=== PATIENT | female | born 1985 | race Caucasian/White ===

== ENCOUNTER 2019-06-08 12:27 | Outpatient (CLI) | payer OTHER ==
--- NOTE | 2019-06-08 17:44 | Ultrasound Report ---
US OB limited INDICATION: VIC, position. COMPARISON: None available. FINDINGS: There are twin intrauterine pregnancies. Baby A: Largest vertical amniotic fluid pocket measures 2.68 cm, which is normal. heart rate measures 1 49 bpm. position is breech. Baby B: Largest vertical amniotic fluid pocket measures 3.84 cm, which is normal. heart rate measures 1 51 bpm. position is cephalic. Signer Name: Pan Taylor MD Signed: 06/08/2019 5:39 PM Workstation Name: [id number]
[2019-06-08 18:04] VITALS: BP 116/56
--- NOTE | 2019-06-08 19:18 | Ultrasound Report ---
Biophysical profile for baby A FINDINGS: breathing, movement, tone and amniotic fluid volume all score 2 for a total of 8/8. F etal heart rate is 145 bpm. Signer Name: Robert Ellington MD Signed: 06/08/2019 7:13 PM Workstation Name: [id number]
--- NOTE | 2019-06-08 19:19 | Ultrasound Report ---
Biophysical profile for baby B FINDINGS: There is a breathing score of 0. movement, tone and amniotic fluid volume all s core 2 for a total of 6/8. heart rate is 156 bpm. Signer Name: Robert Ellington MD Signed: 06/08/2019 7:15 PM Workstation Name: [id number]
== END 2019-06-08 18:10 | disposition home or self-care (01) ==
LOC: TRG 12:27
PROVIDERS: ATTEND Obstetrics & Gynecology
DX: O47.03 False labor before 37 completed weeks of gestation, third trimester (principal); Z3A.37 37 weeks gestation of pregnancy
CPT/HCPCS: 76815; 76819

== ENCOUNTER 2019-06-15 13:06 | Outpatient (CLI) | payer OTHER ==
[2019-06-15 14:21] VITALS: BP 104/57
--- NOTE | 2019-06-15 17:02 | Ultrasound Report ---
Limited OB with biophysical profile. 06/15/2019. HISTORY: Twin intrauterine gestations. COMPARISON: 06/08/2019. FINDINGS: Twin intrauterine gestations are again noted. Twin A is located in the breech position. The largest vertical pocket of amniotic fluid is 3.4 cm. heart tones are 163 bpm. Twin B is located in the posterior transverse head maternal left position. The largest for pocket of amniotic fluid is 2.5 cm. heart tones are 158 bpm. Biophysical profile is 8 out of 8 for both twin A and twin B. IMPRESSION: Twin A and twin B both have a biophysical profile of 8/8. Signer Name: Cam Stanley MD Signed: 06/15/2019 4:58 PM Workstation Name: [id number]
== END 2019-06-15 17:00 | disposition home or self-care (01) ==
LOC: TRG 13:06
PROVIDERS: ATTEND Obstetrics & Gynecology
DX: O47.1 False labor at or after 37 completed weeks of gestation (principal); Z3A.38 38 weeks gestation of pregnancy
CPT/HCPCS: 59025; 76815; 76819

== ENCOUNTER 2019-06-23 02:06 | Inpatient (IN) | payer SELFPAY ==
[2019-06-23] MEDS ORDERED: LACTATED RINGERS 1,000 ML ONE ×2 (02:31→03:07)
[2019-06-23] MEDS ORDERED: LACTATED RINGERS 1,000 ML IV ONE (02:36)
[2019-06-23] MEDS ORDERED: BICITRA PO ONE (02:40)
[2019-06-23 02:45] LABS: Hemoglobin 12.3 gm/dl (10.1-14.3); Mean Corpuscular HGB Conc 34 % (30-34); Mean Corpuscular Volume 89 fl (79-97); Platelet Count 264 K/mm3 (140-440); Red Blood Count 4.05 M/mm3 (3.65-5.03); Red Cell Distribution Width 14.9 % (13.2-15.2)
[2019-06-23] MEDS: PEPCID IV SCH ×3 (02:45→22:21)
[2019-06-23] MEDS ORDERED: PITOCin/NS 20 UNIT/1000ML DRIP 20,000 MILLIUNITS/1,000 ML BAG IV ONE (02:45)
--- NOTE | 2019-06-23 02:52 | Anesthesia Consultation ---
Anesthesia Consult and Med Hx Date of service: 06/23/19 - Airway Anesthetic Teeth Evaluation: Poor, Chipped ROM Head & Neck: Adequate Mental/Hyoid Distance: Adequate Mallampati Class: Class II Intubation Access Assessment: Probably Good - Pulmonary Exam CTA: Yes - Cardiac Exam Cardiac Exam: RRR - Pre-Operative Health Status ASA Pre-Surgery Classification: ASA2 Proposed Anesthetic Plan: Epidural - Pulmonary Hx Smoking: No Hx Asthma: No Hx Respiratory Symptoms: No SOB: No COPD: No Home Oxygen Therapy: No Hx Pneumonia: No Hx Sleep Apnea: No - Cardiovascular System Hx Hypertension: No Hx Coronary Artery Disease: No Hx Heart Attack/AMI: No Hx Angina: No Hx Cardia Arrhythmia: No Hx Pacemaker: No Hx Internal Defibrillator: No Hx Valvular Heart Disease: No Hx Heart Murmur: No Hx Peripheral Vascular Disease: No - Central Nervous System Hx Neuromuscular Disorder: No Hx Seizures: No CVA: No Hx Back Pain: Yes Hx Psychiatric Problems: No - Gastrointestinal Hx Ulcer: No Hx Gastroesophageal Reflux Disease: Yes - Endocrine Hx Renal Disease: No Hx End Stage Renal Disease: No Hx Cirrhosis: No Hx Liver Disease: No Hx Insulin Dependent Diabetes: No Hx Hypothyroidism: No Hx Hyperthyroidism: No - Hematic Hx Anemia: No Hx Sickle Cell Disease: No - Other Systems Hx Alcohol Use: No Hx Substance Use: No Hx Cancer: No Hx Obesity: No
--- NOTE | 2019-06-23 02:53 | Anesthesia Day of Surgery ---
Anesthesia Day of Surgery - Day of Surgery Patient Examined: Yes Patient H&P Reviewed: Yes Patient is NPO: Yes Beta Blockers: No Cardiac Clearance: No Pulmonary Clearance: No Matthieu's Test: N/A
[2019-06-23] MEDS ORDERED: ZOFRAN IV PRN ×2 (02:54→05:18)
[2019-06-23] MEDS ORDERED: DILAUDID IV PRN ×2 (02:54)
[2019-06-23] MEDS ORDERED: PHENERGAN PO PRN (02:54)
[2019-06-23] MEDS ORDERED: BENADRYL IV PRN (02:54)
[2019-06-23] MEDS ORDERED: PHENERGAN PR PRN ×2 (02:54→05:18)
[2019-06-23] MEDS ORDERED: REGLAN IV NR (03:00)
[2019-06-23] MEDS ORDERED: ANCEF/STERILE WATER 2 GM/20 ML IV NR (03:00)
[2019-06-23] MEDS ORDERED: SUBLIMAZE ONE (03:16)
[2019-06-23] MEDS ORDERED: DIPRIVAN 10 MG/ML IV ONE (03:47)
[2019-06-23] MEDS ORDERED: WATER FOR IRRIG STERILE IR ONE (03:48)
[2019-06-23] MEDS ORDERED: NACL 0.9% IR ONE (03:48)
[2019-06-23] MEDS ORDERED: ZOFRAN ONE (03:55)
[2019-06-23] MEDS ORDERED: METHERGINE IM ONE ×2 (04:08→05:12)
--- NOTE | 2019-06-23 04:56 | History and Physical Report ---
History of Present Illness Date of examination: 06/23/19 Date of admission: 06/23/19 02:06 Chief complaint: Twin gestation at 39 weeks and 5 days in labor. malpresentation, breech/breech. Previous C/section. History of present illness: Patient is a 33 year old , LMP 09/18/18, EDC 06/25/19 at 39 weeks and 5 days with twin gestation who presented to triage complaining of having fluid leakage since about 1 AM. She denies any bleeding but has some contractions. Her cervix is 5 cm/100%/-1. She is patient of [facility]. Sonogram revealed the twins to be breech/breech. She has a previous C/section. Past History Past Surgical History: section Family/Genetic History: none Social history: no significant social history - Obstetrical History Expected Date of Delivery: 06/25/19 Actual Gestation: 39 Week(s) 5 Day(s) : 3 Para: 1 Spontaneous Abortions: 1 Number of Living Children: 1 Medications and Allergies Allergies Allergy/AdvReac Type Severity Reaction Status Date / Time No Known Allergies Allergy Verified 06/08/19 15:19 Active Meds: Active Medications Cefazolin Sodium (Ancef/Sterile Water 2 Gm/20 Ml) 2 gm IV PREOP NR Stop: 06/23/19 23:59 Diphenhydramine HCl (Benadryl) 12.5 mg IV Q2H PRN PRN Reason: Itching Famotidine (Pepcid) 20 mg IV BID MASHA Hydromorphone HCl (Dilaudid) 0.5 mg IV Q5M PRN PRN Reason: Breakthrough Pain Stop: 06/23/19 15:00 Hydromorphone HCl (Dilaudid) 0.5 mg IV Q4H PRN PRN Reason: breakthrough pain > 7/10 Oxytocin/Sodium Chloride (Pitocin/Ns 20 Unit/1000ml Drip) 20 units in 1,000 mls @ 0 mls/hr IV DIRECT MASHA Metoclopramide HCl (Reglan) 10 mg IV PREOP NR Stop: 06/23/19 10:00 Ondansetron HCl (Zofran) 4 mg IV Q8H PRN PRN Reason: Nausea And Vomiting Promethazine HCl (Phenergan) 25 mg PO Q6H PRN PRN Reason: Nausea And Vomiting Promethazine HCl (Phenergan) 25 mg AR Q6H PRN PRN Reason: Nausea And Vomiting - Vital Signs Vital signs: Vital Signs Temp Pulse Resp BP 99.7 F H 76 18 133/61 06/23/19 02:55 06/23/19 02:55 06/23/19 02:55 06/23/19 02:55 Temp Pulse Resp BP Pulse Ox 99.7 F H 78 18 132/80 06/23/19 02:55 06/23/19 04:39 06/23/19 02:55 06/23/19 04:39 - Physical Exam Cardiovascular: Normal S1, Normal S2 Lungs: Positive: Clear to auscultation Vulva: both: normal Deep Tendon Reflex Grade: Normal +2 - Obstetrical FHR: category 1 Uterine Contraction Monitor Mode: External Cervical Dilatation: 5 Cervical Effacement Percentage: 100 station: -1 Uterine Contraction Pattern: Irregular Uterine Contraction Intensity: Mild Results Result Diagrams: 06/23/19 02:30 All other labs normal. Assessment and Plan - Patient Problems (1) 39 weeks gestation of Current Visit: Yes Status: Acute (2) malpresentation Current Visit: Yes Status: Acute Plan to address problem: Admit to labor floor. Sonogram confirmed breech/breech presentation. Routine preop labs. IV hydration. Keep NPO. monitoring. Patient was counselled for repeat C/section. Risks, benefits, and alternatives of the procedure were discussed in detail with the patient which included but not limited to the risk of infection, hemorrhage requiring blood transfusion, injury to the bowel or bladder and blood vessels. The patient expressed understanding, her questions were answered, and she gave informed consent. Anesthesia notified. (3) Previous section Current Visit: Yes Status: Acute
--- NOTE | 2019-06-23 05:07 | Post Anesthesia Evaluation ---
- Post Anesthesia Evaluation Patient Participated: Yes Nausea/Vomiting: No Temp > 96.8F: Yes Pain Manageable: Yes Adequeate Hydration: Yes Anesthesia Complications: No Block Receding Appropriately: Yes Patient on Ventilator: No
--- NOTE | 2019-06-23 05:08 | Operative Report ---
Operative Report Operative Report: Preoperative diagnosis 1. Twin gestation at 39 weeks and 5 days in active labor. 2. Breech/breech presentation. 3. Previous C/section. Postoperative diagnosis: Same. Procedure: Repeat low-transverse section. Surgeon: Dr. Lamar Wood Boatbuilder Apprentice: none Anesthesia: epidural. IVF: RL 1600 cc EBL: 400 cc Urine: 500 cc clear Complications: none. Intraoperative findings: 1. Baby A, female infant found in a double footling presentation, delivered at 3:59 AM, Apgars 8 at 1 minute and 9 at 5 minutes, weight 6 lbs. 8 oz. 2. Baby B, female infant found in a double footling presentation, delivered at 4 AM, Apgars 8 at 1 minute and 9 at 5 minutes, weight 6 lbs 11 oz. 3. Normal fallopian tubes and ovaries bilaterally. Procedure details: Risks, benefits, and alternatives of the procedure were discussed in detail with the patient which included but not limited to the risk of infection, hemorrhage requiring blood transfusion, injury to the bowel or bladder and blood vessels. The patient expressed understanding, her questions were answered, and she gave informed consent. The patient was taken to the operating room with an IV fluid infusing Ringers lactate. In the operating room, she was placed in a sitting position and given epidural anesthesia. She was then placed in a dorsal supine position with a leftward tilt. Rodriguez catheter in Venodyne boots were placed. The abdomen was washed and she was prepared and draped in usual sterile fashion. After confirming adequate anesthesia, a Pfannenstiel skin incision was made in the lower abdomen about 2 cm above the pubic symphysis using the scalpel. This incision was carried down to the underlying fascia using the Bovie. The fascia was opened bilaterally in a curvilinear fashion using the Bovie. 2 straight Kocker clamps were used to grasp the upper edge of the fascia from which the underlying rectus abdominis muscles was dissected off using the Bovie. A similar procedure was done with the lower edge of the fascia to dissect the underlying rectus abdominis muscle. The muscle was bluntly from the midline by pulling. The parietal peritoneum was grasped with 2 hemostat clamps and entered sharply using Metzenbaum scissors. A quick survey of the anatomy revealed a gravid uterus, normal fallopian tubes and ovaries bilaterally. A bladder flap was created. Glenn'O retractor was placed in the incision for proper visualization. A low transverse incision was made in the lower uterine segment using the scalpel and extended bilaterally in a curvilinear fashion using bandage scissors. Baby A's amniotic sac was ruptured and there was copious amount of clear amniotic fluids. Baby A was a female found in double footling presentation. She was delivered up to the thorax, the anterior shoulder was delivered, the body was rotated 180 degree to bring the posterior shoulder to an anterior position from where it was delivered. The head was flexed and delivered atraumatically at 3:59 AM. The cord was clamped 2 and cut and the was handed off to the waiting senior informatica etl developer. Apgars were 8 at 1 minute and 9 at 5 minutes, weight was 6 pounds and 8 ounces. Attention was the turned to baby B where amniotic sac was ruptured and there was copious amount of clear amniotic fluids. Baby B was a female found in double footling presentation. She was delivered up to the thorax, the anterior shoulder was delivered, the body was rotated 180 degree to bring the posterior shoulder to an anterior position from where it was delivered. The head was flexed and delivered atraumatically at 4 AM. The cord was clamped 2 and cut and the infant was handed off to the waiting senior informatica etl developer. Apgars were 8 at 1 minute and 9 at 5 minutes, weight was 6 pounds and 11 ounces. Cord blood was collected from both placentae. The placentae were delivered manually and both were complete with three-vessel cords. The uterine cavity was cleaned of clots and debris using dry lap sponges. The uterine incision was repaired in a running locked fashion using 0 Vicryl sutures. A second layer of imbrication was placed. The gutters were cl eaned of clots and debris using dry lap sponges. After confirming adequate hemostasis, the instruments were removed from the abdominal cavity. The rectus muscle was reapproximated in an interrupted fashion using 0 Vicryl sutures. The fascia was closed in a running fashion using 0 Vicryl sutures. The subcutaneous adipose layer was closed with 2.0 vicryl suture. The skin was closed with jessica. Sterile dressing was placed. The counts of laps, needles, sponges, and instruments were correct 2. The patient tolerated the procedure well, she was taken to the recovery room in a stable condition.
[2019-06-23] MEDS ORDERED: TYLENOL PO PRN (05:18)
[2019-06-23] MEDS ORDERED: MORPHINE IV PRN (05:18)
[2019-06-23] MEDS ORDERED: TORADOL IV PRN (05:18)
[2019-06-23] MEDS ORDERED: NARCAN 0.4 MG/1 ML IV PRN (05:18)
[2019-06-23] MEDS ORDERED: TUCKS PAD TP PRN (05:18)
[2019-06-23] MEDS ORDERED: LANSINOH TP PRN (05:18)
[2019-06-23] MEDS ORDERED: MYLICON PO PRN (05:18)
[2019-06-23] MEDS: PITOCin/NS 20 UNIT/1000ML DRIP 20 UNITS/1,000 ML BAG IV SCH ×2 (05:31→05:32)
[2019-06-23] MEDS ORDERED: PITOCin/NS 20 UNIT/1000ML DRIP 20 UNITS/1,000 ML BAG IV SCH (06:00)
[2019-06-23] MEDS: TORADOL IV PRN ×2 (06:24→08:33)
[2019-06-23] MEDS: MORPHINE IV PRN ×2 (07:12→17:57)
[2019-06-23] MEDS: SODIUM CHLORIDE FLUSH SYRINGE 10 ML IV NR ×2 (08:36→17:58)
[2019-06-23] MEDS ORDERED: ANUCORT-HC PR PRN (10:00)
[2019-06-23 15:59] LABS: Hematocrit 34.4 % (30.3-42.9); Hemoglobin 11.6 gm/dl (10.1-14.3)
[2019-06-23] MEDS: PERCOCET 5/325 PO PRN (22:26)
[2019-06-24] MEDS: PERCOCET 5/325 PO PRN (04:39)
[2019-06-24] MEDS ORDERED: BOOSTRIX IM ONE (06:00)
--- NOTE | 2019-06-24 10:38 | Progress Note ---
Assessment and Plan A: POD#1 s/p Repeat C/S (Twins) Pain well controlled Stable P: Routine PP/PO orders Encouraged ambulation in room Anticipate discharge home in 24-48 hrs Subjective - Subjective Date of service: 06/24/19 Principal diagnosis: POD#1 s/p Repeat C/S; Twins Patient reports: appetite normal, voiding normally, pain well controlled, flatus, ambulating normally, no bowel movement : doing well, nursing well Objective - Vital Signs Latest vital signs: Vital Signs Temp Pulse Resp BP Pulse Ox 06/24/19 08:55 98.3 F 50 L 18 106/62 100 06/24/19 04:03 98.8 F 55 L 20 105/59 98 06/23/19 23:41 98.6 F 58 L 20 93/47 94 06/23/19 20:39 97.6 F 55 L 20 99/48 100 06/23/19 17:57 16 06/23/19 16:07 98.5 F 60 16 93/50 97 06/23/19 12:51 97.6 F 50 L 16 106/51 99 Intake and Output 06/23/19 06/24/19 06/24/19 23:59 07:59 15:59 Intake Total 480 Output Total 450 700 Balance -450 -220 Intake: Intake, Free Water 480 Output: Urine 450 700 Void 450 700 Other: Total, Output Amount 450 700 - Exam Breasts: Present: normal, Cardiovascular: Present: Regular rate, Normal S1, Normal S2, No murmurs Lungs: Present: Clear to auscultation, Normal air movement Abdomen: Present: normal appearance, soft, tenderness (as expected post-op), normal bowel sounds. Absent: distention Vulva: both: normal Uterus: Present: firm, fundal height at umbilicus Extremities: Present: normal Deep Tendon Reflex Grade: Normal +2 Incision: Present: normal, dry, intact, dressed (Pressure dressing CDI)
[2019-06-24] MEDS: IBUPROFEN PO PRN ×2 (10:58→22:44)
[2019-06-24] MEDS: FEOSOL PO SCH (10:59)
[2019-06-24] MEDS: PRENATAL VITAMIN PO SCH (10:59)
[2019-06-24] MEDS: PEPCID IV SCH (22:00)
[2019-06-24] MEDS: MILK OF MAGNESIA PO PRN (22:43)
[2019-06-24] MEDS: SENOKOT PO PRN (22:44)
[2019-06-25] MEDS: IBUPROFEN PO PRN ×2 (08:11→15:44)
[2019-06-25] MEDS: SENOKOT PO PRN (08:11)
--- NOTE | 2019-06-25 10:19 | Progress Note ---
Assessment and Plan A: POD#2 s/p Repeat C/S (Twins) Pain well controlled Stable P: Routine PP/PO orders Encouraged ambulation in room Abdominal binder Anticipate discharge home in 24-48 hrs Subjective - Subjective Principal diagnosis: POD#2 s/p Repeat C/S; Twins Interval history: See H&P and operative note Patient reports: appetite normal, voiding normally, pain well controlled, flatus, ambulating normally, no bowel movement : doing well, other (Breast and bottle) Objective - Vital Signs Latest vital signs: Vital Signs Temp Pulse Resp BP Pulse Ox 06/25/19 08:56 98.3 F 67 16 110/59 100 06/24/19 23:20 98.3 F 55 L 20 99/53 100 06/24/19 17:27 98.3 F 59 L 18 112/59 99 06/24/19 10:58 18 Intake and Output 06/24/19 06/25/19 06/25/19 23:59 07:59 15:59 Intake Total 720 Output Total 1150 Balance -430 Intake: Oral 480 Intake, Free Water 240 Output: Urine 1150 Void 1150 Other: Total, Intake Amount 240 Total, Output Amount 1150 # Voids Void 1 1 - Exam Breasts: Present: normal, Cardiovascular: Present: Regular rate, Normal S1, Normal S2, No murmurs Lungs: Present: Clear to auscultation, Normal air movement Abdomen: Present: normal appearance, soft, tenderness (as expected ), normal bowel sounds, other (passing gas). Absent: distention Vulva: both: normal Uterus: Present: firm, fundal height at umbilicus Extremities: Present: normal, edema (1-2+) Deep Tendon Reflex Grade: Normal +2 Incision: Present: normal (LTI, closed with SQ sutures and steri strips, CDI), dry, intact
--- NOTE | 2019-06-25 10:21 | Discharge Summary ---
Providers - Providers Date of Admission: 06/23/19 02:06 Date of discharge: 06/26/19 Attending physician: JOSUE STARK MD Primary care physician: JOSUE STARK MD Hospitalization Reason for admission: section, other (Twin gestation) Delivery: Procedure: repeat low transverse Procedure details: SEE operative note Incision: normal (LTI, closed with SQ sutures and steri strips, CDI), dry, intact Other procedures: none complications: none Discharge diagnosis: IUP at term delivered baby: twins (fe/fe) Condition at discharge: Good Disposition: DC-01 TO HOME OR SELFCARE Plan - Discharge Medications Prescriptions: Ibuprofen [Motrin] 800 mg PO Q8HR PRN #30 tablet PRN Reason: Pain, Moderate (4-6) oxyCODONE /ACETAMINOPHEN [Percocet 5/325] 1 tab PO Q4HR #20 tab - Provider Discharge Summary Activity: routine, no sex for 6 weeks, no heavy lifting 4 weeks, no strenuous exercise Diet: routine Instructions: routine Additional instructions: [] Smoking cessation referral if applicable(refer to patient education folder for contact #) [] Refer to [facility] Booklet Call your doctor immediately for: * Fever > 100.5 * Heavy vaginal bleeding ( >1 pad per hour) * Severe persistent headache * Shortness of breath * Reddened, hot, painful area to leg or breast * Drainage or odor from incision. * Keep incision clean and dry at all times and follow doctor's instructions regarding bathing/showering - Follow up plan Follow up: JOSUE STARK MD [Primary Care Provider] - 7 Days
[2019-06-25] MEDS: FEOSOL PO SCH ×2 (10:35→10:36)
[2019-06-25] MEDS: PRENATAL VITAMIN PO SCH (10:36)
[2019-06-25] MEDS: PEPCID IV SCH ×2 (10:37→21:34)
[2019-06-25] MEDS: MILK OF MAGNESIA PO PRN (15:44)
[2019-06-25] MEDS: PERCOCET 5/325 PO PRN (15:45)
[2019-06-26] MEDS: IBUPROFEN PO PRN ×2 (00:02→09:33)
[2019-06-26] MEDS: FEOSOL PO SCH (09:32)
[2019-06-26] MEDS: PEPCID IV SCH (09:32)
[2019-06-26] MEDS: SENOKOT PO PRN (09:32)
[2019-06-26] MEDS: PRENATAL VITAMIN PO SCH (09:33)
[2019-06-26 14:42] VITALS: BP 99/50
== END 2019-06-26 13:10 | disposition home or self-care (01) | DRG 788 ==
LOC: APU 02:06 → OB 07:26
PROVIDERS: ADMIT Obstetrics & Gynecology; ATTEND Obstetrics & Gynecology
PROC: 10D00Z1 Extraction of Products of Conception, Low, Open Approach (ICD-10-PCS; principal; 2019-06-23)
PROC: 3E0234Z Introduction of Serum, Toxoid and Vaccine into Muscle, Percutaneous Approach (ICD-10-PCS; 2019-06-24)
DX: O34.211 Maternal care for low transverse scar from previous cesarean delivery (principal); O30.043 Twin pregnancy, dichorionic/diamniotic, third trimester; O32.8XX1 Maternal care for other malpresentation of fetus, fetus 1; O32.8XX2 Maternal care for other malpresentation of fetus, fetus 2; Z23 Encounter for immunization; Z3A.39 39 weeks gestation of pregnancy; Z37.2 Twins, both liveborn
CPT/HCPCS: 36415; 85014; 85018; 85027; 86592; 86850; 86900; 86901; 88307; 90471; 90715; G0378; A6250; J0690; J1885; J2210; J2270; J2405; J2590; J2704; J2765; J3010; J7120